=== PATIENT | male | born 1975 | race Caucasian/White ===

== ENCOUNTER 2017-06-20 12:57 | Inpatient (IN) | payer MEDICAID ==
[~2017-06-20] VITALS: Ht 180.3 cm; Wt 122.0 kg
[~2017-06-20 12:57] MED LIST: ARIP5TAB4 PO; BUPR200T2 PO; DULO60CA45 PO; TRAZ300T2 PO
[2017-06-20 14:42] LABS: BASOPHILS % (AUTO) 0 % (0-1); EOSINOPHILS % (AUTO) 0.2 % (0-6); HEMATOCRIT 36.8 % (42.0-52.0); HEMOGLOBIN 12.2 g/dl (14.0-17.9); LYMPHOCYTES % (AUTO) 7.1 % (21-51); MEAN CORPUSCULAR HGB CONC 33.2 % (33.0-36.5); MEAN CORPUSCULAR VOLUME 87.6 FL (78-98); MEAN PLATELET VOLUME 8.2 FL (7.4-10.4); MONOCYTES # (AUTO) 0.8 X10'3 (0-0.9); MONOCYTES % (AUTO) 5.6 % (2-12); NEUTROPHILS # (AUTO) 12.5 X10'3 (1.8-7.7); NEUTROPHILS % (AUTO) 87.1 % (42-75); PLATELET COUNT 188 X10'3 (140-440); RED CELL DISTRIBUTION WIDTH 16.2 % (11.5-14.5); WHITE BLOOD COUNT 14.4 X10'3 (4.5-11.0)
[2017-06-20 14:48] LABS: INR 1.1 INR; PARTIAL THROMBOPLASTIN TIME 31 SECONDS (22-32); PROTHROMBIN TIME 10.9 SECONDS (9.0-12.0)
[2017-06-20 15:02] LABS: ALANINE AMINOTRANSFERASE 25 U/L (12-78); ALBUMIN/GLOBULIN RATIO 0.6 (1.1-1.5); ALKALINE PHOSPHATASE 89 IU/L (46-116); ANION GAP 10 (8-16); ASPARTATE AMINO TRANSFERASE 18 U/L (10-37); BILIRUBIN,TOTAL 0.5 MG/DL (0.1-1.0); BLOOD UREA NITROGEN 15 MG/DL (7-18); BUN/CREATININE RATIO 12.4 (5.4-32.0); CALCIUM 8.2 MG/DL (8.5-10.1); CHLORIDE 94 MMOL/L (99-107); CREATININE 1.21 MG/DL (0.60-1.10); GLUCOSE 98 MG/DL (70-104); POTASSIUM 3.4 MMOL/L (3.5-5.1); SODIUM 131 MMOL/L (135-145); TOTAL CARBON DIOXIDE 26.7 MMOL/L (24-32); TOTAL PROTEIN 8.1 G/DL (6.4-8.2); eGFR 66 ML/MIN
[2017-06-20] MEDS ORDERED: iohexol 300mg/ml 100ml inj. ONE (16:00)
[2017-06-20 17:01] LABS: CLARITY,URINE CLEAR (Clear); COLOR,URINE YELLOW (Yellow); GLUCOSE, URINE NEGATIVE (Neg); KETONES,URINE 15 mg/dl (Neg); LEUKOCYTE ESTERASE ,URINE NEGATIVE (Neg); NITRITES, URINE NEGATIVE (Neg); OCCULT BLOOD,URINE NEGATIVE (Neg); PROTEIN,URINE 100 mg/dl (Neg)
[2017-06-20 17:10] LABS: URINE AMPHETAMINE SCREEN POSITIVE (Neg); URINE BARBITUATE SCREEN NEGATIVE (Neg); URINE BENZODIAZEPINES SCREEN NEGATIVE (Neg); URINE CANNABINOID SCREEN POSITIVE (Neg); URINE COCAINE SCREEN NEGATIVE (Neg); URINE METHADONE SCREEN NEGATIVE (Neg); URINE OPIATE SCREEN POSITIVE (Neg); URINE PHENCYCLIDINE SCREEN NEGATIVE (Neg)
[2017-06-20] MEDS ORDERED: acetaminophen 325mg tablet PO ONE (17:10)
[2017-06-20 17:11] LABS: UA COLLECTION TYPE OTHER
[2017-06-20 17:12] LABS: BACTERIA,URINE FEW /HPF (Neg); MUCUS STRANDS MODERATE /LPF (Neg); RBC,URINE 0-2 /HPF (0-2); SQUAMOUS EPITHELIAL CELL,UR FEW /LPF (FEW); WBC,URINE 0-4 /HPF (0-4)
[2017-06-20] MEDS ORDERED: magnesium Cl slow-release 64mg tablet PO PRN (18:10)
[2017-06-20] MEDS ORDERED: mag hydrox/Alum hydrox/simeth 30ml oral suspension PO PRN (18:10)
[2017-06-20] MEDS ORDERED: potassium Cl 20 mEq SR tablet PO PRN (18:10)
[2017-06-20] MEDS ORDERED: HYDROcodone/acetaminophen 5mg/325mg tablet PO PRN (18:10)
[2017-06-20] MEDS ORDERED: acetaminophen 325mg tablet PO PRN (18:10)
[2017-06-20] MEDS ORDERED: morphine 4 MG/ML inj SYRINge IV PRN ×2 (18:10)
[2017-06-20] MEDS ORDERED: magnesium 2GM in 50ml NS 50 ML IV PRN (18:10)
[2017-06-20] MEDS ORDERED: bisacodyl 10mg suppository rectal RC PRN (18:10)
[2017-06-20] MEDS ORDERED: ondansetron/PF 4mg/2ml inj IV PRN (18:10)
[2017-06-20] MEDS ORDERED: magnesium 4gm in 100ml NS 100 ML IV PRN (18:10)
[2017-06-20] MEDS ORDERED: magnesium hydroxide 30ml (MOM) UD suspension PO PRN (18:10)
[2017-06-20] MEDS ORDERED: potassium Cl 40MEQ/NS 500ml 500 ML IV PRN ×2 (18:10)
[2017-06-20] MEDS ORDERED: LORazepam 1 MG tablet PO PRN (18:20)
[2017-06-20] MEDS ORDERED: LORazepam 2 mg/ml vial IV PRN (18:20)
[2017-06-20] MEDS: piperacillin/tazo 4.5gm/100ml 100 ML IV SCH (18:32)
[2017-06-20] MEDS: vancomycin/NS 1 GM ADD-VANTAGE 250 ML IV SCH (19:54)
[2017-06-20] MEDS: potassium Cl 20mEq in NS 1,000 ML IV SCH (19:55)
[2017-06-20] MEDS: traZODone 50mg tablet PO SCH (21:02)
[2017-06-20] MEDS: docusate sod 100mg capsule PO SCH (21:04)
[2017-06-20] MEDS: heparin, porcine 5000 units/ml vial SQ SCH (21:07)
[2017-06-20 23:14] VITALS: BP 103/48
[2017-06-21] VITALS (18 sets, daily range): BP systolic 88–144; BP diastolic 44–86
[2017-06-21] MEDS: potassium Cl 20mEq in NS 1,000 ML IV SCH ×3 (00:07→23:57)
[2017-06-21] MEDS: piperacillin/tazo 4.5gm/100ml 100 ML IV SCH ×4 (00:07→23:57)
[2017-06-21] MEDS: HYDROcodone/acetaminophen 10/325mg tab PO PRN ×3 (00:08→20:48)
[2017-06-21] MEDS: vancomycin/NS 1 GM ADD-VANTAGE 250 ML IV SCH ×2 (05:20→08:09)
[2017-06-21 05:50] LABS: BASOPHILS % (AUTO) 0.1 % (0-1); EOSINOPHILS # (AUTO) 0.1 X10'3 (0-0.9); EOSINOPHILS % (AUTO) 0.5 % (0-6); HEMOGLOBIN 11.8 g/dl (14.0-17.9); LYMPHOCYTES # (AUTO) 1.6 X10'3 (1.1-4.8); MEAN CORPUSCULAR HEMOGLOBIN 29.4 PG (27.0-31.0); MEAN CORPUSCULAR HGB CONC 33.6 % (33.0-36.5); MEAN CORPUSCULAR VOLUME 87.3 FL (78-98); MEAN PLATELET VOLUME 8.2 FL (7.4-10.4); MONOCYTES # (AUTO) 1.1 X10'3 (0-0.9); MONOCYTES % (AUTO) 9.1 % (2-12); NEUTROPHILS # (AUTO) 9.4 X10'3 (1.8-7.7); NEUTROPHILS % (AUTO) 77.3 % (42-75); PLATELET COUNT 170 X10'3 (140-440); RED BLOOD COUNT 4.01 X10'6 (4.70-6.10); RED CELL DISTRIBUTION WIDTH 15.9 % (11.5-14.5); WHITE BLOOD COUNT 12.2 X10'3 (4.5-11.0)
[2017-06-21 06:19] LABS: ALANINE AMINOTRANSFERASE 25 U/L (12-78); ALBUMIN 2.8 G/DL (3.4-5.0); ALBUMIN/GLOBULIN RATIO 0.5 (1.1-1.5); ALKALINE PHOSPHATASE 91 IU/L (46-116); ANION GAP 10 (8-16); ASPARTATE AMINO TRANSFERASE 19 U/L (10-37); BILIRUBIN,TOTAL 0.4 MG/DL (0.1-1.0); BLOOD UREA NITROGEN 10 MG/DL (7-18); BUN/CREATININE RATIO 8.1 (5.4-32.0); CALCIUM 8.3 MG/DL (8.5-10.1); CHLORIDE 97 MMOL/L (99-107); CREATININE 1.23 MG/DL (0.60-1.10); GLUCOSE 101 MG/DL (70-104); MAGNESIUM 1.8 MG/DL (1.5-2.4); PHOSPHORUS 3.7 MG/DL (2.3-4.5); POTASSIUM 3.2 MMOL/L (3.5-5.1); SODIUM 134 MMOL/L (135-145); TOTAL CARBON DIOXIDE 27.1 MMOL/L (24-32); TOTAL PROTEIN 7.9 G/DL (6.4-8.2); eGFR 65 ML/MIN
[2017-06-21] MEDS ORDERED: folic acid inj. 2 MG, MVI, adult No.4 with vit. K 10 ML in dextrose 5% water 500ml 500 ML IV SCH ×3 (08:00)
[2017-06-21] MEDS: nicotine 21mg patch - 24 hr TD SCH (08:00)
[2017-06-21] MEDS: K and/or MAG REPLACEMENT MC SCH (08:00)
[2017-06-21] MEDS: duloxetine 30mg CAPSULE.DR PO SCH (08:10)
[2017-06-21] MEDS: heparin, porcine 5000 units/ml vial SQ SCH ×2 (08:10→19:27)
[2017-06-21] MEDS: buPROPion SR 150mg tablet PO SCH (08:10)
[2017-06-21] MEDS: docusate sod 100mg capsule PO SCH ×2 (08:11→19:21)
[2017-06-21] MEDS ORDERED: multivitamins, therapeutics tablet PO SCH (09:47)
[2017-06-21] MEDS: aripiprazole 5mg tablet PO SCH (10:24)
[2017-06-21] MEDS: folic acid 1mg tablet PO SCH (12:39)
[2017-06-21] MEDS: potassium Cl 20 mEq SR tablet PO PRN ×3 (12:40→23:57)
[2017-06-21] MEDS ORDERED: ceFAZolin 1000mg inj ONE (14:16)
[2017-06-21] MEDS ORDERED: ringers solution, lacted 1,000 ML IV SCH (14:46)
[2017-06-21] MEDS ORDERED: proCHLORperazine 10 MG/2 ml inj IV PRN ×2 (14:50→16:25)
[2017-06-21] MEDS ORDERED: fentaNYL/PF 50MCG/1 ML 2ML syringe IV PRN ×4 (14:50→16:25)
[2017-06-21] MEDS ORDERED: morphine 4 MG/ML inj SYRINge IV PRN ×4 (14:50→16:25)
[2017-06-21] MEDS ORDERED: ondansetron/PF 4mg/2ml inj IV PRN ×2 (14:50→16:25)
[2017-06-21] MEDS ORDERED: meperidine/PF 50mg/ml syringe IV PRN ×2 (14:50→16:25)
[2017-06-21] MEDS ORDERED: sevoflurane 250ml liquid IH ONE (14:55)
[2017-06-21] MEDS ORDERED: midazolam 2 mg/2 ml injection ONE (15:07)
[2017-06-21] MEDS ORDERED: fentaNYL/PF 50MCG/1 ML 2ML syringe ONE ×2 (15:07→16:21)
[2017-06-21] MEDS ORDERED: propofol inj 20 ML IV ONE (15:28)
[2017-06-21] MEDS ORDERED: LIDOcaine 2% (20mg/ml) 5ml vial ONE (15:28)
[2017-06-21] MEDS ORDERED: rocuronium 10mg/ml inj IV ONE (15:29)
[2017-06-21] MEDS ORDERED: dexamethasone sod phosphate 4mg/ml inj. ONE (15:37)
[2017-06-21] MEDS ORDERED: ondansetron/PF 4mg/2ml inj ONE (15:38)
[2017-06-21] MEDS ORDERED: morphine 10mg/ml inj. ONE (15:43)
[2017-06-21] MEDS ORDERED: BUPIVAcaine/PF 2.5 mg/ml (0.25%) 30ml vial ONE (15:51)
[2017-06-21] MEDS: lactobacillus rhamnosus 10,000 MMU CELLS/CAPSULE PO SCH (19:21)
[2017-06-21] MEDS: traZODone 50mg tablet PO SCH (20:41)
[2017-06-22] MEDS: HYDROcodone/acetaminophen 10/325mg tab PO PRN ×4 (01:15→20:51)
[2017-06-22 05:00] VITALS: BP 100/68
[2017-06-22 05:52] LABS: BASOPHILS % (AUTO) 0.3 % (0-1); EOSINOPHILS % (AUTO) 0 % (0-6); HEMATOCRIT 34.8 % (42.0-52.0); HEMOGLOBIN 11.8 g/dl (14.0-17.9); LYMPHOCYTES # (AUTO) 1.1 X10'3 (1.1-4.8); MEAN CORPUSCULAR HEMOGLOBIN 29.3 PG (27.0-31.0); MEAN CORPUSCULAR HGB CONC 33.9 % (33.0-36.5); MEAN CORPUSCULAR VOLUME 86.5 FL (78-98); MEAN PLATELET VOLUME 8.1 FL (7.4-10.4); MONOCYTES # (AUTO) 0.6 X10'3 (0-0.9); MONOCYTES % (AUTO) 3.9 % (2-12); NEUTROPHILS # (AUTO) 13.7 X10'3 (1.8-7.7); NEUTROPHILS % (AUTO) 88.8 % (42-75); PLATELET COUNT 169 X10'3 (140-440); RED BLOOD COUNT 4.03 X10'6 (4.70-6.10); WHITE BLOOD COUNT 15.4 X10'3 (4.5-11.0)
[2017-06-22 06:09] LABS: ALANINE AMINOTRANSFERASE 30 U/L (12-78); ALBUMIN 2.4 G/DL (3.4-5.0); ALBUMIN/GLOBULIN RATIO 0.4 (1.1-1.5); ALKALINE PHOSPHATASE 98 IU/L (46-116); ANION GAP 8 (8-16); ASPARTATE AMINO TRANSFERASE 25 U/L (10-37); BILIRUBIN,TOTAL 0.2 MG/DL (0.1-1.0); BLOOD UREA NITROGEN 11 MG/DL (7-18); BUN/CREATININE RATIO 11.3 (5.4-32.0); CALCIUM 8.3 MG/DL (8.5-10.1); CHLORIDE 104 MMOL/L (99-107); CREATININE 0.97 MG/DL (0.60-1.10); GLUCOSE 136 MG/DL (70-104); MAGNESIUM 2.4 MG/DL (1.5-2.4); PHOSPHORUS 3.8 MG/DL (2.3-4.5); POTASSIUM 4.4 MMOL/L (3.5-5.1); SODIUM 138 MMOL/L (135-145); TOTAL CARBON DIOXIDE 25.8 MMOL/L (24-32); TOTAL PROTEIN 7.9 G/DL (6.4-8.2); eGFR 85 ML/MIN
[2017-06-22] MEDS: K and/or MAG REPLACEMENT MC SCH (08:00)
[2017-06-22] MEDS: nicotine 21mg patch - 24 hr TD SCH (08:00)
[2017-06-22] MEDS: piperacillin/tazo 4.5gm/100ml 100 ML IV SCH ×3 (08:29→23:17)
[2017-06-22] MEDS: duloxetine 30mg CAPSULE.DR PO SCH (08:30)
[2017-06-22] MEDS: lactobacillus rhamnosus 10,000 MMU CELLS/CAPSULE PO SCH ×2 (08:30→19:55)
[2017-06-22] MEDS: multivitamins, therapeutics tablet PO SCH (08:30)
[2017-06-22] MEDS: docusate sod 100mg capsule PO SCH ×2 (08:30→19:55)
[2017-06-22] MEDS: folic acid 1mg tablet PO SCH (08:30)
[2017-06-22] MEDS: buPROPion SR 150mg tablet PO SCH (08:30)
[2017-06-22] MEDS: heparin, porcine 5000 units/ml vial SQ SCH ×2 (08:31→19:55)
[2017-06-22 10:00] VITALS: BP 114/74
[2017-06-22] MEDS ORDERED: pneumococcal 23-VAL P-sac vacc 25 mcg/0.5ml vial IMVAC ONE (10:00)
[2017-06-22] MEDS: aripiprazole 5mg tablet PO SCH (10:30)
[2017-06-22 13:37] VITALS: BP 97/72
[2017-06-22 14:25] VITALS: BP 111/66
[2017-06-22] MEDS ORDERED: VANCOMYCIN LEVEL IV ONE (15:30)
[2017-06-22] MEDS: potassium Cl 20mEq in NS 1,000 ML IV SCH (18:32)
[2017-06-22 18:47] VITALS: BP 114/74
[2017-06-22] MEDS: traZODone 50mg tablet PO SCH (20:55)
[2017-06-22 22:19] VITALS: BP 127/79
[2017-06-23] MEDS: potassium Cl 20mEq in NS 1,000 ML IV SCH ×3 (01:44→23:11)
[2017-06-23] MEDS: HYDROcodone/acetaminophen 10/325mg tab PO PRN ×2 (05:48→17:44)
[2017-06-23 06:00] VITALS: BP 120/63
[2017-06-23] MEDS: K and/or MAG REPLACEMENT MC SCH (06:57)
[2017-06-23 07:07] LABS: BASOPHILS % (AUTO) 0.1 % (0-1); EOSINOPHILS # (AUTO) 0.1 X10'3 (0-0.9); EOSINOPHILS % (AUTO) 0.7 % (0-6); HEMATOCRIT 35.2 % (42.0-52.0); HEMOGLOBIN 11.8 g/dl (14.0-17.9); LYMPHOCYTES # (AUTO) 1.8 X10'3 (1.1-4.8); LYMPHOCYTES % (AUTO) 10.9 % (21-51); MEAN CORPUSCULAR HEMOGLOBIN 29.4 PG (27.0-31.0); MEAN CORPUSCULAR HGB CONC 33.4 % (33.0-36.5); MEAN CORPUSCULAR VOLUME 88.1 FL (78-98); MEAN PLATELET VOLUME 8.7 FL (7.4-10.4); MONOCYTES # (AUTO) 0.5 X10'3 (0-0.9); MONOCYTES % (AUTO) 3.3 % (2-12); NEUTROPHILS # (AUTO) 14.1 X10'3 (1.8-7.7); PLATELET COUNT 190 X10'3 (140-440); RED CELL DISTRIBUTION WIDTH 16.4 % (11.5-14.5); WHITE BLOOD COUNT 16.6 X10'3 (4.5-11.0)
[2017-06-23] MEDS: lactobacillus rhamnosus 10,000 MMU CELLS/CAPSULE PO SCH ×2 (07:08→20:36)
[2017-06-23] MEDS: folic acid 1mg tablet PO SCH (07:08)
[2017-06-23] MEDS: buPROPion SR 150mg tablet PO SCH (07:08)
[2017-06-23] MEDS: multivitamins, therapeutics tablet PO SCH (07:08)
[2017-06-23] MEDS: duloxetine 30mg CAPSULE.DR PO SCH (07:08)
[2017-06-23] MEDS: docusate sod 100mg capsule PO SCH ×2 (07:09→20:00)
[2017-06-23] MEDS: heparin, porcine 5000 units/ml vial SQ SCH ×2 (07:10→20:36)
[2017-06-23] MEDS: nicotine 21mg patch - 24 hr TD SCH (07:11)
[2017-06-23] MEDS: piperacillin/tazo 4.5gm/100ml 100 ML IV SCH ×3 (07:21→23:12)
[2017-06-23 07:32] LABS: ALANINE AMINOTRANSFERASE 42 U/L (12-78); ALBUMIN 2.4 G/DL (3.4-5.0); ALBUMIN/GLOBULIN RATIO 0.5 (1.1-1.5); ALKALINE PHOSPHATASE 95 IU/L (46-116); ANION GAP 7 (8-16); ASPARTATE AMINO TRANSFERASE 37 U/L (10-37); BILIRUBIN,TOTAL 0.2 MG/DL (0.1-1.0); BLOOD UREA NITROGEN 16 MG/DL (7-18); BUN/CREATININE RATIO 17.2 (5.4-32.0); CALCIUM 8.5 MG/DL (8.5-10.1); CHLORIDE 107 MMOL/L (99-107); CREATININE 0.93 MG/DL (0.60-1.10); GLUCOSE 94 MG/DL (70-104); MAGNESIUM 2.6 MG/DL (1.5-2.4); PHOSPHORUS 2.9 MG/DL (2.3-4.5); POTASSIUM 4.4 MMOL/L (3.5-5.1); SODIUM 142 MMOL/L (135-145); TOTAL CARBON DIOXIDE 28.3 MMOL/L (24-32); TOTAL PROTEIN 7.7 G/DL (6.4-8.2); eGFR 90 ML/MIN
[2017-06-23 07:47] LABS: ANISOCYTOSIS 1+; PLATELET ESTIMATE NORMAL; TOTAL CELLS COUNTED 100; TOXIC GRANULATION 2+; TOXIC VACUOLATION 1+
[2017-06-23 07:48] LABS: BURR CELLS FEW
[2017-06-23] MEDS: aripiprazole 5mg tablet PO SCH (09:14)
[2017-06-23 10:00] VITALS: BP 105/76
[2017-06-23 18:00] VITALS: BP 129/74
[2017-06-23] MEDS: traZODone 50mg tablet PO SCH (20:37)
[2017-06-23 22:00] VITALS: BP 130/82
[2017-06-24] MEDS: potassium Cl 20mEq in NS 1,000 ML IV SCH ×3 (02:07→19:04)
[2017-06-24] MEDS: HYDROcodone/acetaminophen 10/325mg tab PO PRN ×5 (04:41→23:11)
[2017-06-24 05:32] LABS: BASOPHILS # (AUTO) 0.2 X10'3 (0-0.2); BASOPHILS % (AUTO) 1.1 % (0-1); EOSINOPHILS # (AUTO) 0.1 X10'3 (0-0.9); EOSINOPHILS % (AUTO) 0.4 % (0-6); HEMATOCRIT 32.4 % (42.0-52.0); HEMOGLOBIN 10.8 g/dl (14.0-17.9); LYMPHOCYTES # (AUTO) 3.3 X10'3 (1.1-4.8); LYMPHOCYTES % (AUTO) 23.3 % (21-51); MEAN CORPUSCULAR HEMOGLOBIN 29.1 PG (27.0-31.0); MEAN CORPUSCULAR HGB CONC 33.4 % (33.0-36.5); MEAN CORPUSCULAR VOLUME 86.9 FL (78-98); MEAN PLATELET VOLUME 8.1 FL (7.4-10.4); MONOCYTES # (AUTO) 0.9 X10'3 (0-0.9); MONOCYTES % (AUTO) 6.1 % (2-12); NEUTROPHILS # (AUTO) 9.8 X10'3 (1.8-7.7); NEUTROPHILS % (AUTO) 69.1 % (42-75); PLATELET COUNT 248 X10'3 (140-440); RED BLOOD COUNT 3.72 X10'6 (4.70-6.10); RED CELL DISTRIBUTION WIDTH 16.5 % (11.5-14.5); WHITE BLOOD COUNT 14.3 X10'3 (4.5-11.0)
[2017-06-24 05:57] LABS: ALANINE AMINOTRANSFERASE 35 U/L (12-78); ALBUMIN 2.3 G/DL (3.4-5.0); ALBUMIN/GLOBULIN RATIO 0.5 (1.1-1.5); ALKALINE PHOSPHATASE 78 IU/L (46-116); ANION GAP 8 (8-16); ASPARTATE AMINO TRANSFERASE 23 U/L (10-37); BILIRUBIN,TOTAL 0.3 MG/DL (0.1-1.0); BLOOD UREA NITROGEN 13 MG/DL (7-18); BUN/CREATININE RATIO 11.8 (5.4-32.0); CHLORIDE 108 MMOL/L (99-107); GLUCOSE 76 MG/DL (70-104); MAGNESIUM 2.1 MG/DL (1.5-2.4); PHOSPHORUS 3.1 MG/DL (2.3-4.5); POTASSIUM 3.9 MMOL/L (3.5-5.1); SODIUM 142 MMOL/L (135-145); TOTAL CARBON DIOXIDE 26.3 MMOL/L (24-32); TOTAL PROTEIN 7.2 G/DL (6.4-8.2); eGFR 74 ML/MIN
[2017-06-24 06:00] VITALS: BP 133/60
[2017-06-24 06:30] VITALS: BP 130/70
[2017-06-24] MEDS: K and/or MAG REPLACEMENT MC SCH (07:17)
[2017-06-24] MEDS: docusate sod 100mg capsule PO SCH ×2 (07:36→20:00)
[2017-06-24] MEDS: folic acid 1mg tablet PO SCH (07:37)
[2017-06-24] MEDS: lactobacillus rhamnosus 10,000 MMU CELLS/CAPSULE PO SCH ×2 (07:37→20:40)
[2017-06-24] MEDS: duloxetine 30mg CAPSULE.DR PO SCH (07:37)
[2017-06-24] MEDS: buPROPion SR 150mg tablet PO SCH (07:37)
[2017-06-24] MEDS: multivitamins, therapeutics tablet PO SCH (07:37)
[2017-06-24] MEDS: heparin, porcine 5000 units/ml vial SQ SCH ×2 (07:38→20:41)
[2017-06-24] MEDS: piperacillin/tazo 4.5gm/100ml 100 ML IV SCH (07:39)
[2017-06-24] MEDS: nicotine 21mg patch - 24 hr TD SCH (08:00)
[2017-06-24] MEDS: aripiprazole 5mg tablet PO SCH (08:57)
[2017-06-24 18:00] VITALS: BP 120/70
[2017-06-24] MEDS: traZODone 50mg tablet PO SCH (20:41)
[2017-06-24 22:00] VITALS: BP 140/80
[2017-06-25] MEDS: HYDROcodone/acetaminophen 10/325mg tab PO PRN ×2 (05:14→09:22)
[2017-06-25] MEDS: potassium Cl 20mEq in NS 1,000 ML IV SCH (05:15)
[2017-06-25 06:00] VITALS: BP 134/84
[2017-06-25 07:20] LABS: BASOPHILS % (AUTO) 0.1 % (0-1); EOSINOPHILS # (AUTO) 0.2 X10'3 (0-0.9); HEMATOCRIT 33.8 % (42.0-52.0); HEMOGLOBIN 11.5 g/dl (14.0-17.9); LYMPHOCYTES # (AUTO) 2.7 X10'3 (1.1-4.8); LYMPHOCYTES % (AUTO) 25.5 % (21-51); MEAN CORPUSCULAR HEMOGLOBIN 29.5 PG (27.0-31.0); MEAN CORPUSCULAR HGB CONC 34.1 % (33.0-36.5); MEAN CORPUSCULAR VOLUME 86.4 FL (78-98); MEAN PLATELET VOLUME 8.1 FL (7.4-10.4); MONOCYTES # (AUTO) 0.5 X10'3 (0-0.9); MONOCYTES % (AUTO) 4.8 % (2-12); NEUTROPHILS # (AUTO) 7.3 X10'3 (1.8-7.7); NEUTROPHILS % (AUTO) 67.6 % (42-75); PLATELET COUNT 272 X10'3 (140-440); RED BLOOD COUNT 3.91 X10'6 (4.70-6.10); RED CELL DISTRIBUTION WIDTH 15.8 % (11.5-14.5); WHITE BLOOD COUNT 10.7 X10'3 (4.5-11.0)
[2017-06-25 07:23] LABS: ALANINE AMINOTRANSFERASE 34 U/L (12-78); ALBUMIN 2.4 G/DL (3.4-5.0); ALBUMIN/GLOBULIN RATIO 0.4 (1.1-1.5); ALKALINE PHOSPHATASE 80 IU/L (46-116); ANION GAP 10 (8-16); ASPARTATE AMINO TRANSFERASE 21 U/L (10-37); BILIRUBIN,TOTAL 0.2 MG/DL (0.1-1.0); BLOOD UREA NITROGEN 9 MG/DL (7-18); BUN/CREATININE RATIO 8.5 (5.4-32.0); CALCIUM 8.5 MG/DL (8.5-10.1); CHLORIDE 107 MMOL/L (99-107); CREATININE 1.06 MG/DL (0.60-1.10); GLUCOSE 78 MG/DL (70-104); MAGNESIUM 2.3 MG/DL (1.5-2.4); PHOSPHORUS 5.2 MG/DL (2.3-4.5); SODIUM 143 MMOL/L (135-145); TOTAL CARBON DIOXIDE 26.2 MMOL/L (24-32); eGFR 77 ML/MIN
[2017-06-25] MEDS: K and/or MAG REPLACEMENT MC SCH (08:00)
[2017-06-25] MEDS: nicotine 21mg patch - 24 hr TD SCH (08:00)
[2017-06-25] MEDS: folic acid 1mg tablet PO SCH (09:10)
[2017-06-25] MEDS: multivitamins, therapeutics tablet PO SCH (09:10)
[2017-06-25] MEDS: docusate sod 100mg capsule PO SCH (09:10)
[2017-06-25] MEDS: lactobacillus rhamnosus 10,000 MMU CELLS/CAPSULE PO SCH (09:10)
[2017-06-25] MEDS: duloxetine 30mg CAPSULE.DR PO SCH (09:11)
[2017-06-25] MEDS: buPROPion SR 150mg tablet PO SCH (09:11)
[2017-06-25] MEDS: heparin, porcine 5000 units/ml vial SQ SCH (09:11)
[2017-06-25] MEDS: aripiprazole 5mg tablet PO SCH (09:11)
[2017-06-25 10:00] VITALS: BP 122/69
[2017-06-25] MEDS ORDERED: SULF1TAB49 PO (13:03)
[2017-06-25] MEDS ORDERED: HYDR-569 PO (13:03)
== END 2017-06-25 16:55 | disposition home or self-care (01) | DRG 349 ==
LOC: ER 12:58 → ED HOLD 17:42 → ORTHO 4S 22:20
PROVIDERS: ADMIT Internal Medicine; ATTEND Family Medicine
PROC: BQ2S1ZZ Computerized Tomography (CT Scan) of Left Lower Extremity using Low Osmolar Contrast (ICD-10-PCS; 2017-06-20)
PROC: BQ2R1ZZ Computerized Tomography (CT Scan) of Right Lower Extremity using Low Osmolar Contrast (ICD-10-PCS; 2017-06-20)
PROC: 0JBR0ZZ Excision of Left Foot Subcutaneous Tissue and Fascia, Open Approach (ICD-10-PCS; principal; 2017-06-21 14:55)
DX: T87.44 Infection of amputation stump, left lower extremity (principal); A41.9 Sepsis, unspecified organism; L03.116 Cellulitis of left lower limb; E87.1 Hypo-osmolality and hyponatremia; I11.0 Hypertensive heart disease with heart failure; I50.9 Heart failure, unspecified; F20.9 Schizophrenia, unspecified; T87.81 Dehiscence of amputation stump; L02.612 Cutaneous abscess of left foot; E87.6 Hypokalemia; E66.9 Obesity, unspecified; B95.62 Methicillin resistant Staphylococcus aureus infection as the cause of diseases classified elsewhere; F10.10 Alcohol abuse, uncomplicated; F11.10 Opioid abuse, uncomplicated; F15.10 Other stimulant abuse, uncomplicated; F17.210 Nicotine dependence, cigarettes, uncomplicated; K21.9 Gastro-esophageal reflux disease without esophagitis; Y83.5 Amputation of limb(s) as the cause of abnormal reaction of the patient, or of later complication, without mention of misadventure at the time of the procedure; F12.90 Cannabis use, unspecified, uncomplicated; F41.9 Anxiety disorder, unspecified; Z68.37 Body mass index [BMI] 37.0-37.9, adult; Z59.0 Homelessness; Z71.6 Tobacco abuse counseling; Z79.899 Other long term (current) drug therapy
CPT/HCPCS: 36415; 71045; 73701; 80053; 80202; 80305; 81001; 82948; 83605; 83735; 84100; 84145; 85025; 85610; 85730; 87040; 87070; 87075; 87077; 87102; 87186; 97110; 97116; 97162; 97530; 99285; A4310; A6222; A6446; A6449; A7000; J0690; J1100; J1644; J2001; J2175; J2250; J2270; J2405; J2543; J2704; J3010; J3370; J3490; J7030; J7060; J7120; Q9967

== ENCOUNTER 2017-07-09 12:37 | Outpatient (CLI) | payer MEDICAID ==
[~2017-07-09 12:37] MED LIST changes: +HYDR-569 PO
== END 2017-07-09 23:59 | disposition home or self-care (01) ==
LOC: VAS 12:37
PROVIDERS: ATTEND Nurse Practitioner
DX: Z00.00 Encounter for general adult medical examination without abnormal findings (principal); I82.533 Chronic embolism and thrombosis of popliteal vein, bilateral; Z79.01 Long term (current) use of anticoagulants
CPT/HCPCS: 93970

== ENCOUNTER 2017-07-22 09:35 | Day surgery (SDC) | payer MEDICAID ==
[2017-07-22] MEDS ORDERED: SULF1TAB49 PO (10:50)
[2017-07-22] MEDS ORDERED: COU4T PO (10:50)
[2017-07-22] MEDS ORDERED: GABA-534 PO (10:51)
[2017-07-22] MEDS ORDERED: LIDOcaine 2% 5ml jelly ONE ×2 (10:53)
== END 2017-07-22 11:39 | disposition home or self-care (01) ==
LOC: WOUND CARE 09:35
PROVIDERS: ATTEND Surgery
DX: T87.81 Dehiscence of amputation stump (principal); L97.521 Non-pressure chronic ulcer of other part of left foot limited to breakdown of skin; K21.9 Gastro-esophageal reflux disease without esophagitis; I11.0 Hypertensive heart disease with heart failure; I50.9 Heart failure, unspecified; E66.9 Obesity, unspecified; F10.10 Alcohol abuse, uncomplicated; F41.9 Anxiety disorder, unspecified; F12.90 Cannabis use, unspecified, uncomplicated; F17.210 Nicotine dependence, cigarettes, uncomplicated; F15.10 Other stimulant abuse, uncomplicated; F11.10 Opioid abuse, uncomplicated; Z86.718 Personal history of other venous thrombosis and embolism; Z79.01 Long term (current) use of anticoagulants; Z68.37 Body mass index [BMI] 37.0-37.9, adult; Z79.899 Other long term (current) drug therapy; Y83.5 Amputation of limb(s) as the cause of abnormal reaction of the patient, or of later complication, without mention of misadventure at the time of the procedure
CPT/HCPCS: 11042; A6021; A6223; A6446

== ENCOUNTER 2017-07-29 09:30 | Day surgery (SDC) | payer MEDICAID ==
[~2017-07-29 09:30] MED LIST changes: +COU4T PO; +GABA-534 PO; -HYDR-569 PO; +SULF1TAB49 PO
[2017-07-29] MEDS ORDERED: LIDOcaine 2% 5ml jelly ONE ×2 (10:07→10:39)
== END 2017-07-29 11:29 | disposition home or self-care (01) ==
LOC: WOUND CARE 09:30
PROVIDERS: ATTEND Surgery
DX: T87.81 Dehiscence of amputation stump (principal); L97.521 Non-pressure chronic ulcer of other part of left foot limited to breakdown of skin; K21.9 Gastro-esophageal reflux disease without esophagitis; I11.0 Hypertensive heart disease with heart failure; I50.9 Heart failure, unspecified; E66.9 Obesity, unspecified; F10.10 Alcohol abuse, uncomplicated; F41.9 Anxiety disorder, unspecified; F12.90 Cannabis use, unspecified, uncomplicated; F17.210 Nicotine dependence, cigarettes, uncomplicated; F15.10 Other stimulant abuse, uncomplicated; F11.10 Opioid abuse, uncomplicated; Z86.718 Personal history of other venous thrombosis and embolism; Z79.01 Long term (current) use of anticoagulants; Z68.37 Body mass index [BMI] 37.0-37.9, adult; Z79.899 Other long term (current) drug therapy; Y83.5 Amputation of limb(s) as the cause of abnormal reaction of the patient, or of later complication, without mention of misadventure at the time of the procedure
CPT/HCPCS: 11042; A6021; A6223

== ENCOUNTER 2017-08-05 09:33 | Day surgery (SDC) | payer MEDICAID ==
[2017-08-05] MEDS ORDERED: LIDOcaine 2% 5ml jelly ONE (09:57)
== END 2017-08-05 11:08 | disposition home or self-care (01) ==
LOC: WOUND CARE 09:33
PROVIDERS: ATTEND Surgery
DX: T87.81 Dehiscence of amputation stump (principal); L97.522 Non-pressure chronic ulcer of other part of left foot with fat layer exposed; I87.2 Venous insufficiency (chronic) (peripheral); K21.9 Gastro-esophageal reflux disease without esophagitis; I11.0 Hypertensive heart disease with heart failure; I50.9 Heart failure, unspecified; E66.9 Obesity, unspecified; F10.10 Alcohol abuse, uncomplicated; F41.9 Anxiety disorder, unspecified; F12.90 Cannabis use, unspecified, uncomplicated; F17.210 Nicotine dependence, cigarettes, uncomplicated; F15.10 Other stimulant abuse, uncomplicated; F11.10 Opioid abuse, uncomplicated; F20.9 Schizophrenia, unspecified; Z86.718 Personal history of other venous thrombosis and embolism; Z79.01 Long term (current) use of anticoagulants; Z68.37 Body mass index [BMI] 37.0-37.9, adult; Z79.899 Other long term (current) drug therapy; Y83.5 Amputation of limb(s) as the cause of abnormal reaction of the patient, or of later complication, without mention of misadventure at the time of the procedure
CPT/HCPCS: 11042; A6021; A6206; A6223; A6446

== ENCOUNTER 2017-08-12 09:17 | Day surgery (SDC) | payer MEDICAID ==
[2017-08-12] MEDS ORDERED: LIDOcaine 2% 5ml jelly ONE (09:24)
== END 2017-08-12 11:00 | disposition home or self-care (01) ==
LOC: WOUND CARE 09:17
PROVIDERS: ATTEND Surgery
DX: T87.81 Dehiscence of amputation stump (principal); L97.522 Non-pressure chronic ulcer of other part of left foot with fat layer exposed; I87.2 Venous insufficiency (chronic) (peripheral); K21.9 Gastro-esophageal reflux disease without esophagitis; I11.0 Hypertensive heart disease with heart failure; I50.9 Heart failure, unspecified; E66.9 Obesity, unspecified; F10.10 Alcohol abuse, uncomplicated; F41.9 Anxiety disorder, unspecified; F12.90 Cannabis use, unspecified, uncomplicated; F17.210 Nicotine dependence, cigarettes, uncomplicated; F15.10 Other stimulant abuse, uncomplicated; F11.10 Opioid abuse, uncomplicated; F20.9 Schizophrenia, unspecified; Z86.718 Personal history of other venous thrombosis and embolism; Z79.01 Long term (current) use of anticoagulants; Z68.37 Body mass index [BMI] 37.0-37.9, adult; Z79.899 Other long term (current) drug therapy; Y83.5 Amputation of limb(s) as the cause of abnormal reaction of the patient, or of later complication, without mention of misadventure at the time of the procedure
CPT/HCPCS: 15275; A6209; A6222; A6446; Q4131; A6250

== ENCOUNTER 2017-08-19 09:43 | Day surgery (SDC) | payer MEDICAID ==
[2017-08-19] MEDS ORDERED: LIDOcaine 2% 5ml jelly ONE (10:06)
== END 2017-08-19 11:07 | disposition home or self-care (01) ==
LOC: WOUND CARE 09:43
PROVIDERS: ATTEND Surgery
DX: T87.81 Dehiscence of amputation stump (principal); L97.522 Non-pressure chronic ulcer of other part of left foot with fat layer exposed; I87.2 Venous insufficiency (chronic) (peripheral); K21.9 Gastro-esophageal reflux disease without esophagitis; I11.0 Hypertensive heart disease with heart failure; I50.9 Heart failure, unspecified; E66.9 Obesity, unspecified; F10.10 Alcohol abuse, uncomplicated; F41.9 Anxiety disorder, unspecified; F12.90 Cannabis use, unspecified, uncomplicated; F17.210 Nicotine dependence, cigarettes, uncomplicated; F15.10 Other stimulant abuse, uncomplicated; F11.10 Opioid abuse, uncomplicated; F20.9 Schizophrenia, unspecified; Z86.718 Personal history of other venous thrombosis and embolism; Z79.01 Long term (current) use of anticoagulants; Z68.37 Body mass index [BMI] 37.0-37.9, adult; Z79.899 Other long term (current) drug therapy; Y83.5 Amputation of limb(s) as the cause of abnormal reaction of the patient, or of later complication, without mention of misadventure at the time of the procedure
CPT/HCPCS: 97597; A6021; A6206; A6446; L3260

== ENCOUNTER 2017-08-27 09:00 | Day surgery (SDC) | payer MEDICAID ==
[2017-08-27] MEDS ORDERED: LIDOcaine 2% 5ml jelly ONE (09:33)
== END 2017-08-27 10:52 | disposition home or self-care (01) ==
LOC: WOUND CARE 09:00
PROVIDERS: ATTEND Surgery
DX: T87.81 Dehiscence of amputation stump (principal); L97.522 Non-pressure chronic ulcer of other part of left foot with fat layer exposed; I87.2 Venous insufficiency (chronic) (peripheral); K21.9 Gastro-esophageal reflux disease without esophagitis; I11.0 Hypertensive heart disease with heart failure; I50.9 Heart failure, unspecified; E66.9 Obesity, unspecified; F10.10 Alcohol abuse, uncomplicated; F41.9 Anxiety disorder, unspecified; F12.90 Cannabis use, unspecified, uncomplicated; F17.210 Nicotine dependence, cigarettes, uncomplicated; F15.10 Other stimulant abuse, uncomplicated; F11.10 Opioid abuse, uncomplicated; F20.9 Schizophrenia, unspecified; Z86.718 Personal history of other venous thrombosis and embolism; Z79.01 Long term (current) use of anticoagulants; Z68.37 Body mass index [BMI] 37.0-37.9, adult; Z79.899 Other long term (current) drug therapy; Y83.5 Amputation of limb(s) as the cause of abnormal reaction of the patient, or of later complication, without mention of misadventure at the time of the procedure
CPT/HCPCS: 15275; A6206; A6209; A6446; Q4131; A6250

== ENCOUNTER 2017-09-09 09:09 | Day surgery (SDC) | payer MEDICAID ==
[2017-09-09] MEDS ORDERED: LIDOcaine 2% 5ml jelly ONE (09:45)
== END 2017-09-09 11:00 | disposition home or self-care (01) ==
LOC: WOUND CARE 09:09
PROVIDERS: ATTEND Surgery
DX: T87.81 Dehiscence of amputation stump (principal); L97.522 Non-pressure chronic ulcer of other part of left foot with fat layer exposed; I87.2 Venous insufficiency (chronic) (peripheral); K21.9 Gastro-esophageal reflux disease without esophagitis; I11.0 Hypertensive heart disease with heart failure; I50.9 Heart failure, unspecified; E66.9 Obesity, unspecified; F10.10 Alcohol abuse, uncomplicated; F41.9 Anxiety disorder, unspecified; F12.90 Cannabis use, unspecified, uncomplicated; F17.210 Nicotine dependence, cigarettes, uncomplicated; F15.10 Other stimulant abuse, uncomplicated; F11.10 Opioid abuse, uncomplicated; F20.9 Schizophrenia, unspecified; Z86.718 Personal history of other venous thrombosis and embolism; Z79.01 Long term (current) use of anticoagulants; Z68.37 Body mass index [BMI] 37.0-37.9, adult; Z79.899 Other long term (current) drug therapy; Y83.8 Other surgical procedures as the cause of abnormal reaction of the patient, or of later complication, without mention of misadventure at the time of the procedure
CPT/HCPCS: 11042; A6021; A6206; A6209; A6446

== ENCOUNTER 2017-10-01 09:28 | Outpatient (CLI) | payer MEDICAID ==
[2017-10-01] MEDS ORDERED: LIDOcaine 2% 5ml jelly ONE (09:31)
== END 2017-10-01 10:26 | disposition home or self-care (01) ==
LOC: WOUND CARE 09:28 → EDSTATUS 10:00 → WOUND CARE 10:26
PROVIDERS: ATTEND Surgery
DX: T87.81 Dehiscence of amputation stump (principal); L97.522 Non-pressure chronic ulcer of other part of left foot with fat layer exposed; I87.2 Venous insufficiency (chronic) (peripheral); K21.9 Gastro-esophageal reflux disease without esophagitis; I11.0 Hypertensive heart disease with heart failure; I50.9 Heart failure, unspecified; E66.9 Obesity, unspecified; F10.10 Alcohol abuse, uncomplicated; F41.9 Anxiety disorder, unspecified; F12.90 Cannabis use, unspecified, uncomplicated; F17.210 Nicotine dependence, cigarettes, uncomplicated; F15.10 Other stimulant abuse, uncomplicated; F11.10 Opioid abuse, uncomplicated; F20.9 Schizophrenia, unspecified; Z86.718 Personal history of other venous thrombosis and embolism; Z79.01 Long term (current) use of anticoagulants; Z68.37 Body mass index [BMI] 37.0-37.9, adult; Z79.899 Other long term (current) drug therapy; Y83.5 Amputation of limb(s) as the cause of abnormal reaction of the patient, or of later complication, without mention of misadventure at the time of the procedure
CPT/HCPCS: 99215; A6212

== ENCOUNTER 2017-11-25 20:01 | Inpatient (IN) | payer MEDICAID ==
[~2017-11-25] VITALS: Ht 180.3 cm; Wt 128.0 kg
[2017-11-25] MEDS ORDERED: LORazepam 2 mg/ml vial IV ONE (20:50)
[2017-11-25] MEDS ORDERED: thiamine inj. 100 MG, magnesium sulf injection 2 GM, MVI, adult No.4 with vit. K 10 ML ... IV STA ×4 (20:52)
[2017-11-25] MEDS ORDERED: diphenhydrAMINE 50 mg/ml inj IV ONE (20:55)
[2017-11-25 22:15] LABS: ALANINE AMINOTRANSFERASE 29 U/L (12-78); ALBUMIN 3.9 G/DL (3.4-5.0); ALBUMIN/GLOBULIN RATIO 0.9 (1.1-1.5); ALKALINE PHOSPHATASE 79 IU/L (46-116); ANION GAP 8 (8-16); ASPARTATE AMINO TRANSFERASE 22 U/L (10-37); BILIRUBIN,TOTAL 0.4 MG/DL (0.1-1.0); BLOOD UREA NITROGEN 18 MG/DL (7-18); BUN/CREATININE RATIO 17.1 (5.4-32.0); CALCIUM 8.7 MG/DL (8.5-10.1); CHLORIDE 106 MMOL/L (99-107); CREATININE 1.05 MG/DL (0.60-1.10); GLUCOSE 77 MG/DL (70-104); POTASSIUM 3.6 MMOL/L (3.5-5.1); SODIUM 142 MMOL/L (135-145); TOTAL CARBON DIOXIDE 28.1 MMOL/L (24-32); TOTAL PROTEIN 8.2 G/DL (6.4-8.2); eGFR 78 ML/MIN
[2017-11-25 22:15] LABS: BASOPHILS # (AUTO) 0.1 X10'3 (0-0.2); BASOPHILS % (AUTO) 0.8 % (0-1); EOSINOPHILS # (AUTO) 0.2 X10'3 (0-0.9); EOSINOPHILS % (AUTO) 2.4 % (0-6); HEMATOCRIT 37.3 % (42.0-52.0); HEMOGLOBIN 12.6 g/dl (14.0-17.9); LYMPHOCYTES # (AUTO) 2.2 X10'3 (1.1-4.8); MEAN CORPUSCULAR HEMOGLOBIN 30.5 PG (27.0-31.0); MEAN CORPUSCULAR HGB CONC 33.9 % (33.0-36.5); MEAN CORPUSCULAR VOLUME 89.8 FL (78-98); MEAN PLATELET VOLUME 8.3 FL (7.4-10.4); MONOCYTES # (AUTO) 0.6 X10'3 (0-0.9); MONOCYTES % (AUTO) 9.4 % (2-12); NEUTROPHILS # (AUTO) 3.7 X10'3 (1.8-7.7); NEUTROPHILS % (AUTO) 54.4 % (42-75); PLATELET COUNT 207 X10'3 (140-440); RED BLOOD COUNT 4.15 X10'6 (4.70-6.10); RED CELL DISTRIBUTION WIDTH 14.5 % (11.5-14.5); WHITE BLOOD COUNT 6.7 X10'3 (4.5-11.0)
[2017-11-25 22:23] LABS: ETHANOL < 0.010 GM/DL (0.0-0.010)
[2017-11-25 22:25] LABS: ACETAMINOPHEN < 2.0 UG/ML (10-30)
[2017-11-25 22:40] LABS: CLARITY,URINE SLIGHTLY CLOUDY (Clear); COLOR,URINE YELLOW (Yellow); GLUCOSE, URINE NEGATIVE (Neg); KETONES,URINE TRACE mg/dl (Neg); LEUKOCYTE ESTERASE ,URINE NEGATIVE (Neg); NITRITES, URINE NEGATIVE (Neg); OCCULT BLOOD,URINE NEGATIVE (Neg); PH,URINE 5.5 (4.8-8.0); PROTEIN,URINE TRACE mg/dl (Neg); UROBILINOGEN,URINE 0.2 E.U/dL (0.2-1.0)
[2017-11-25 22:41] LABS: URINE AMPHETAMINE SCREEN POSITIVE (Neg); URINE BARBITUATE SCREEN NEGATIVE (Neg); URINE BENZODIAZEPINES SCREEN NEGATIVE (Neg); URINE CANNABINOID SCREEN POSITIVE (Neg); URINE COCAINE SCREEN NEGATIVE (Neg); URINE METHADONE SCREEN NEGATIVE (Neg); URINE OPIATE SCREEN NEGATIVE (Neg); URINE PHENCYCLIDINE SCREEN NEGATIVE (Neg)
[2017-11-25 23:02] LABS: UA COLLECTION TYPE STRAIGHT CATH
[2017-11-25 23:04] LABS: AMORPHOUS URATES 1+; BACTERIA,URINE FEW /HPF (Neg); MUCUS STRANDS FEW /LPF (Neg); RBC,URINE 0-2 /HPF (0-2); SQUAMOUS EPITHELIAL CELL,UR FEW /LPF (FEW); WBC,URINE 0-4 /HPF (0-4)
[2017-11-25] MEDS ORDERED: BACLOFEN 10 MG TABLET (23:18)
[2017-11-25] MEDS ORDERED: BUSPIRONE HCL 10 MG TABLET (23:18)
[2017-11-25] MEDS ORDERED: LATUDA 40 MG (23:18)
[2017-11-25] MEDS ORDERED: DULOXETINE HCL DR 60 MG CAP (23:18)
[2017-11-25] MEDS ORDERED: BUPROPION HCL XL 300 MG TABLET (23:18)
[2017-11-25] MEDS ORDERED: BACL10TA PO (23:21)
[2017-11-25] MEDS ORDERED: BUSP10TA11 PO (23:22)
[2017-11-25] MEDS ORDERED: LURA40TA3 PO (23:22)
[2017-11-25] MEDS ORDERED: mag hydrox/Alum hydrox/simeth 30ml oral suspension PO PRN (23:40)
[2017-11-25] MEDS ORDERED: magnesium hydroxide 30ml (MOM) UD suspension PO PRN (23:40)
[2017-11-25] MEDS ORDERED: acetaminophen 325mg tablet PO PRN (23:40)
[2017-11-25] MEDS ORDERED: ondansetron/PF 4mg/2ml inj IV PRN (23:40)
[2017-11-26] MEDS ORDERED: LORazepam 2 mg/ml vial IV PRN (00:05)
[2017-11-26] MEDS ORDERED: morphine 4 MG/ML inj SYRINge IV ONE (00:45)
[2017-11-26] MEDS ORDERED: ondansetron/PF 4mg/2ml inj IV ONE (00:45)
[2017-11-26 01:00] VITALS: BP 123/88
[2017-11-26] MEDS: normal saline 1000ml 1,000 ML IV SCH ×4 (03:31→22:07)
[2017-11-26 06:00] VITALS: BP 100/62
[2017-11-26 06:54] LABS: BASOPHILS % (AUTO) 0.5 % (0-1); EOSINOPHILS # (AUTO) 0.1 X10'3 (0-0.9); EOSINOPHILS % (AUTO) 1.5 % (0-6); HEMOGLOBIN 12.6 g/dl (14.0-17.9); LYMPHOCYTES # (AUTO) 1.9 X10'3 (1.1-4.8); LYMPHOCYTES % (AUTO) 29.1 % (21-51); MEAN CORPUSCULAR HEMOGLOBIN 30.6 PG (27.0-31.0); MEAN CORPUSCULAR HGB CONC 33.9 % (33.0-36.5); MEAN CORPUSCULAR VOLUME 90.1 FL (78-98); MEAN PLATELET VOLUME 8.1 FL (7.4-10.4); MONOCYTES # (AUTO) 0.4 X10'3 (0-0.9); MONOCYTES % (AUTO) 6.5 % (2-12); NEUTROPHILS # (AUTO) 4.1 X10'3 (1.8-7.7); NEUTROPHILS % (AUTO) 62.4 % (42-75); PLATELET COUNT 197 X10'3 (140-440); RED BLOOD COUNT 4.11 X10'6 (4.70-6.10); RED CELL DISTRIBUTION WIDTH 14.5 % (11.5-14.5); WHITE BLOOD COUNT 6.7 X10'3 (4.5-11.0)
[2017-11-26 07:11] LABS: ALANINE AMINOTRANSFERASE 29 U/L (12-78); ALBUMIN 3.3 G/DL (3.4-5.0); ALBUMIN/GLOBULIN RATIO 0.8 (1.1-1.5); ALKALINE PHOSPHATASE 66 IU/L (46-116); ANION GAP 6 (8-16); ASPARTATE AMINO TRANSFERASE 20 U/L (10-37); BILIRUBIN,TOTAL 0.5 MG/DL (0.1-1.0); BLOOD UREA NITROGEN 18 MG/DL (7-18); BUN/CREATININE RATIO 17.8 (5.4-32.0); CALCIUM 8.4 MG/DL (8.5-10.1); CHLORIDE 104 MMOL/L (99-107); CREATININE 1.01 MG/DL (0.60-1.10); GLUCOSE 106 MG/DL (70-104); POTASSIUM 3.1 MMOL/L (3.5-5.1); SODIUM 138 MMOL/L (135-145); TOTAL CARBON DIOXIDE 28.2 MMOL/L (24-32); TOTAL PROTEIN 7.2 G/DL (6.4-8.2); eGFR 81 ML/MIN
[2017-11-26] MEDS: heparin, porcine 5000 units/ml vial SQ SCH ×3 (08:00→19:29)
[2017-11-26] MEDS ORDERED: potassium Cl 40MEQ/NS 500ml 500 ML IV PRN ×2 (08:30)
[2017-11-26] MEDS ORDERED: potassium Cl 20 mEq SR tablet PO PRN (08:30)
[2017-11-26] MEDS: potassium Cl 20 mEq SR tablet PO PRN ×3 (08:51→16:48)
[2017-11-26 10:00] VITALS: BP 124/80
[2017-11-26 18:00] VITALS: BP 107/46
[2017-11-26 22:00] VITALS: BP 107/65
[2017-11-27 05:44] LABS: BASOPHILS % (AUTO) 0.7 % (0-1); EOSINOPHILS # (AUTO) 0.1 X10'3 (0-0.9); EOSINOPHILS % (AUTO) 2.2 % (0-6); HEMATOCRIT 37.8 % (42.0-52.0); HEMOGLOBIN 12.6 g/dl (14.0-17.9); LYMPHOCYTES # (AUTO) 2.6 X10'3 (1.1-4.8); LYMPHOCYTES % (AUTO) 39.3 % (21-51); MEAN CORPUSCULAR HEMOGLOBIN 30.3 PG (27.0-31.0); MEAN CORPUSCULAR HGB CONC 33.2 % (33.0-36.5); MEAN CORPUSCULAR VOLUME 91.2 FL (78-98); MEAN PLATELET VOLUME 8.7 FL (7.4-10.4); MONOCYTES # (AUTO) 0.3 X10'3 (0-0.9); MONOCYTES % (AUTO) 5.1 % (2-12); NEUTROPHILS # (AUTO) 3.5 X10'3 (1.8-7.7); NEUTROPHILS % (AUTO) 52.7 % (42-75); PLATELET COUNT 193 X10'3 (140-440); RED BLOOD COUNT 4.15 X10'6 (4.70-6.10); RED CELL DISTRIBUTION WIDTH 14.6 % (11.5-14.5); WHITE BLOOD COUNT 6.6 X10'3 (4.5-11.0)
[2017-11-27 05:58] LABS: ALANINE AMINOTRANSFERASE 23 U/L (12-78); ALBUMIN 2.9 G/DL (3.4-5.0); ALBUMIN/GLOBULIN RATIO 0.7 (1.1-1.5); ALKALINE PHOSPHATASE 65 IU/L (46-116); ANION GAP 8 (8-16); ASPARTATE AMINO TRANSFERASE 19 U/L (10-37); BILIRUBIN,TOTAL 0.3 MG/DL (0.1-1.0); BLOOD UREA NITROGEN 14 MG/DL (7-18); BUN/CREATININE RATIO 15.2 (5.4-32.0); CALCIUM 8.2 MG/DL (8.5-10.1); CHLORIDE 106 MMOL/L (99-107); CREATININE 0.92 MG/DL (0.60-1.10); GLUCOSE 81 MG/DL (70-104); POTASSIUM 3.5 MMOL/L (3.5-5.1); SODIUM 141 MMOL/L (135-145); TOTAL CARBON DIOXIDE 26.9 MMOL/L (24-32); TOTAL PROTEIN 6.8 G/DL (6.4-8.2); eGFR > 90 ML/MIN
[2017-11-27 06:00] VITALS: BP 101/56
[2017-11-27] MEDS: heparin, porcine 5000 units/ml vial SQ SCH (08:00)
[2017-11-27] MEDS: normal saline 1000ml 1,000 ML IV SCH (08:20)
[2017-11-27 10:00] VITALS: BP 109/62
== END 2017-11-27 12:10 | disposition left against medical advice (07) | DRG 58 ==
LOC: ER 20:02 → ED HOLD 23:38 → ORTHO 4S 11-26 01:04
PROVIDERS: ADMIT Internal Medicine; ATTEND Family Medicine
DX: R25.3 Fasciculation (principal); G93.40 Encephalopathy, unspecified; F20.9 Schizophrenia, unspecified; F15.10 Other stimulant abuse, uncomplicated; G89.29 Other chronic pain; I10 Essential (primary) hypertension; F12.90 Cannabis use, unspecified, uncomplicated; F41.9 Anxiety disorder, unspecified; F19.10 Other psychoactive substance abuse, uncomplicated; F10.10 Alcohol abuse, uncomplicated; Z53.21 Procedure and treatment not carried out due to patient leaving prior to being seen by health care provider; K21.9 Gastro-esophageal reflux disease without esophagitis; Z60.2 Problems related to living alone; Z59.0 Homelessness; Z86.14 Personal history of Methicillin resistant Staphylococcus aureus infection; Z86.718 Personal history of other venous thrombosis and embolism; Z91.14 Patient's other noncompliance with medication regimen
CPT/HCPCS: 36415; 70450; 80053; 80305; 80320; 80329; 81001; 82140; 83605; 84443; 85025; 87040; 87070; 96365; 96375; 99285; A4353; J1200; J1644; J2060; J2270; J2405; J3411; J3475; J7030; J7060

== ENCOUNTER → 2024-11-11 | Emergency (ER) | payer MEDICAID ==
[~2024-11-11] VITALS: Ht 175.3 cm; Wt 90.0 kg
[~2024-11-11] MED LIST changes: -ARIP5TAB4 PO; +BACL10TA PO; +BUSP10TA11 PO; -COU4T PO; -DULO60CA45 PO; +DULO60CA59 PO; -GABA-534 PO; +LURA40TA2 PO; -SULF1TAB49 PO; -TRAZ300T2 PO
--- NOTE | 2024-11-11 12:47 | RADIOLOGY REPORT ---
EXAM: DI FOOT, COMPLETE (3VW MIN) HISTORY: PAIN DUE TO DVT COMPARISON: None TECHNIQUE: DI FOOT, COMPLETE (3VW MIN) FINDINGS: BONES: Status post forefoot amputation. There is lucency in the medial cuneiform. No fracture. Soft tissue swelling in the forefoot. IMPRESSION: 1. Lucency in the medial cuneiform. Osteomyelitis is not excluded. Soft tissue swelling in the forefo ot which may reflect cellulitis.
--- NOTE | 2024-11-11 12:47 | RADIOLOGY REPORT ---
Procedure: DI TIB/FIB 2 VWS 11/11/2024 12:06 PM TECHNIQUE: DI TIB/FIB 2 VWS Indication: amputation ulcers Comparison: None FINDINGS: Bones: No acute fracture or dislocation. Joint spaces are maintained. Soft tissues: Unremarkable. No radiopaque foreign body. IMPRESSION: 1. No acute osseous abnormality.
--- NOTE | 2024-11-11 13:06 | RADIOLOGY REPORT ---
PROCEDURE: Left tibia/ fibula radiographs. INDICATION: PAIN DUE TO DVT TECHNIQUE: Frontal and lateral views of the left tibia/ fibula were obtained. COMPARISON: None FINDINGS: There is no evidence of fracture or dislocation. Joint spaces are maintained. Medial and l ateral soft tissue swelling. IMPRESSION: 1. No fracture or dislocation. 2. Soft tissue swelling of the ankle.
--- NOTE | 2024-11-11 13:27 | RADIOLOGY REPORT ---
CLINICAL INDICATION: amputation ulcers TECHNIQUE: Right DI FOOT, COMPLETE (3VW MIN) Comparison: None FINDINGS/IMPRESSION: : There is no evidence of acute fracture or dislocation. Diffuse soft-tissue edema. Post resection of the distal foot from the level of the proximal metatarsals. No definite radiographic findings of osteomyelitis.
[2024-11-11 14:29] LABS: MEAN PLATELET VOLUME 7.5 FL (7.4-10.4); RED CELL DISTRIBUTION WIDTH 13.6 % (11.5-14.5)
[2024-11-11 14:42] LABS: CREATININE 0.94 MG/DL (0.60-1.10); TOTAL CARBON DIOXIDE 28.3 MMOL/L (24-32); eCRCL 96 ML/MIN; eGFR 86 ML/MIN
--- NOTE | 2024-11-11 14:46 | Physician Documentation ---
History of Present Illness ~ Chief Complaint: See Chief Complaint Stated Complaint: LEG PAIN Time Seen by MD: 13:33 Primary Medical Doctor: NONE HPI 49-year-old male presents to the ED with a complaint of bilateral lower extremity foot pain secondary to previous amputations. He says he was seen at [facility] and they sent him here to be evaluated via x-ray and have concerns over potential osteomyelitis Tetanus within 5 years: Yes Medication Reconciliation Allergies: Coded Allergies: No Known Allergies (Unverified , 11/11/24) Scheduled Baclofen (Baclofen), 1 TABLET PO TID, (Reported) Bupropion Hcl (Wellbutrin Sr), 300 MG PO DAILY, (Reported) Buspirone Hcl* (Buspar*), 1 TAB PO BID, (Reported) Duloxetine HCl (Cymbalta), 1 CAP PO DAILY, (Reported) Lurasidone HCl (Latuda), 1 TAB PO HS, (Reported) Past Medical History Past Medical History: Hypertension, GERD, Deep Vein Thrombosis, *DERMATOLOGY*, MRSA Abscess, Anxiety Past Surgical History: noncontributory, orthopedic surgeries Patient History: Patient reports no known family medical history. Alcohol Use: Occasionally Drug Use: marijuana, methamphetamine, heroin Lives with: Alone Lives In: Homeless Review of Systems All Other Systems at this time: Reviewed and Negative ROS As stated above in the HPI, otherwise all systems are reviewed and negative. Physical Exam Vital Signs: Temperature: 98.5, Source: Temporal, Heart Rate: 83, Respiratory Rate: 16, BP: 120/70, Pulse Oximetry: 99, Weight: 90.000 Oxygen Flow Rate: 0 Physical Exam General: Alert, no apparent distress. Extremities: Normal range of motion, both feet are amputated from mid metatarsal, multiple ulcers on lower extremities due to vascular insufficiency Neurologic: Oriented x4. Psychiatric: Normal mood and affect. Skin: Normal color, warm and dry. No edema, no ecchymosis. Progress Results/Orders Results/Orders Orders - RAMY ALFREDO NP Foot, Complete (3vw Min) (11/11/24 11:46) Tib/Fib (11/11/24 11:46) Culture Blood (11/11/24 13:30) Monitor (11/11/24 13:30) Saline Lock (11/11/24 13:30) Completed Orders - JUNI,RAMY H DIRECTOR HAIR Foot, Complete (3vw Min) (11/11/24 11:46) Tib/Fib (11/11/24 11:46) Cbc/Diff (11/11/24 13:30) Urinalysis, Cult If Indicated (11/11/24 13:30) Procalcitonin (11/11/24 13:30) BMP (11/11/24 13:30) Lacticsepsis (11/11/24 13:30) Vital Signs 11/11/24 11/11/24 11:37 16:07 Temp 98.5 98.5 Pulse 83 86 Resp 16 14 B/P (MAP) 120/70 124/76 Pulse Ox 99 99 O2 Flow Rate 0 Laboratory Tests Test 11/11/24 14:06 11/11/24 15:20 White Blood Count 7.0 Red Blood Count 3.55 L Hemoglobin 10.9 L Hematocrit 31.8 L Mean Corpuscular Volume 89.4 Mean Corpuscular Hemoglobin 30.8 Mean Corpuscular Hemoglobin Concent 34.4 Red Cell Distribution Width 13.6 Platelet Count 282 Mean Platelet Volume 7.5 Neutrophils (%) (Auto) 64.9 Lymphocytes (%) (Auto) 23.9 Monocytes (%) (Auto) 7.0 Eosinophils (%) (Auto) 3.1 Basophils (%) (Auto) 1.1 H Neutrophils # (Auto) 4.6 Lymphocytes # (Auto) 1.7 Monocytes # (Auto) 0.5 Eosinophils # (Auto) 0.2 Basophils # (Auto) 0.1 CBC Comment Sodium Level 136 Potassium Level 4.0 Chloride Level 103 Carbon Dioxide Level 28.3 Anion Gap 5 L Blood Urea Nitrogen 14 Creatinine 0.94 Estimated GFR/1.73 m2 86 BUN/Creatinine Ratio 14.9 Glucose Level 85 Lactic Acid Level 0.5 Calcium Level 8.8 Albumin 3.6 Procalcitonin < 0.05 Chemistry Comments Urine Specimen Description Cln catch midstream Urine Color Yellow Urine Clarity Clear Urine pH 7.0 Urine Specific Maxwell 1.010 Urine Protein Negative Urine Glucose (UA) Negative Urine Ketones Negative Urine Occult Blood Negative Urine Nitrite Negative Urine Bilirubin Negative Urine Urobilinogen 0.2 Urine Leukocyte Esterase Negative Urine Culture Indicated Not ind Volume Urine Centrifuged 10 ml Urine Comment Microbiology Date/Time Source Procedure Growth Status 11/11/24 14:17 Blood Arm Left Blood Culture - Preliminary NO GROWTH AFTER 3 DAYS Resulted Medical Decision Making Findings Patient's labs showed no signs of infectious processes. His x-rays appear to be chronic in nature. Going to discharge him for outpatient evaluate Departure Disposition: HOME / SELF CARE / HOMELESS Impression: Primary Impression: Peripheral Vascular Disease Condition: Stable Referrals: NO PRIMARY CARE PROVIDER (PCP) Education Educated: Patient Educated regarding: diagnosis Signature Scribe Signature: e Attestation: Scribed for Ramy Alfredo Planning Supervisor by Ramy Clay NP . 11/14/24 17:10 RAMY ALFREDO NP Nov 11, 2024 14:46
[2024-11-11 15:29] LABS: LEUKOCYTE ESTERASE ,URINE NEGATIVE (Neg); NITRITES, URINE NEGATIVE (Neg); OCCULT BLOOD,URINE NEGATIVE (Neg)
[2024-11-11 15:33] LABS: UA COLLECTION TYPE CLN CATCH MIDSTREAM
[2024-11-11 16:07] VITALS: BP 124/76; PULSE 86; RESP 14; TEMP 98.5; O2SAT 99
== END | disposition home or self-care (01) ==
LOC: ER 11:35
DX: I73.9 Peripheral vascular disease, unspecified (principal); I10 Essential (primary) hypertension; F12.90 Cannabis use, unspecified, uncomplicated; F15.90 Other stimulant use, unspecified, uncomplicated; Z59.00 Homelessness unspecified; Z86.718 Personal history of other venous thrombosis and embolism
CPT/HCPCS: 36415; 73590; 73630; 80048; 81003; 83605; 84145; 85025; 87040; 99284